=== PATIENT | female | born 1970 | race Caucasian/White ===

== ENCOUNTER 2021-12-08 09:26 | Outpatient (CLI) | payer BC | END 2021-12-08 09:27 | disposition home or self-care (01) | LOC: SCSRAD 09:26 | PROVIDERS: ATTEND Internal Medicine Rheumatology | DX: M25.551 Pain in right hip (principal); M25.552 Pain in left hip | CPT/HCPCS: 72170 ==

== ENCOUNTER 2022-03-08 19:00 | Outpatient (CLI) | payer BC | END 2022-03-08 19:01 | disposition home or self-care (01) | LOC: SLEEPLAB 19:00 | PROVIDERS: ATTEND Student in an Organized Health Care Education/Training Program | DX: G47.33 Obstructive sleep apnea (adult) (pediatric) (principal); G47.00 Insomnia, unspecified; R53.83 Other fatigue; R51.9 Headache, unspecified; E66.9 Obesity, unspecified; R06.83 Snoring; I10 Essential (primary) hypertension; G47.10 Hypersomnia, unspecified; G47.52 REM sleep behavior disorder; Z68.38 Body mass index [BMI] 38.0-38.9, adult | CPT/HCPCS: 95810 ==

== ENCOUNTER 2022-08-22 14:57 | Outpatient (CLI) | payer BC | END 2022-08-22 14:58 | disposition home or self-care (01) | LOC: SCSRAD 14:57 | PROVIDERS: ATTEND Student in an Organized Health Care Education/Training Program | DX: M79.671 Pain in right foot (principal) ==

== ENCOUNTER 2023-01-08 11:01 | Outpatient (CLI) | payer BC ==
[2023-01-08 12:23] LABS: #Basophils 0.1 10x3/uL (0.0-0.2); #Eosinphils 0.2 10x3/uL (0.0-0.5); #Monocytes 0.3 10x3/uL (0.0-1.1); #Neutrophils 2.5 10x3/uL (1.5-8.4); %Basophils 1.5 % (0.0-2.0); %Eosinophils 5.1 % (0.0-6.0); %Lymphocytes 25.7 % (18.0-47.0); %Monocytes 7.1 % (0.0-10.0); %Neutrophils 60.4 % (40.0-75.0); Hemoglobin 14.4 g/dL (12.0-15.5); Mean Corpuscular HGB CONC 33.6 g/dL (32.0-36.0); Mean Corpuscular Hemoglobin 31.2 pg (27.0-33.0); Mean Corpuscular Volume 92.6 fl (81.6-98.3); Mean Platelet Volume 10.2 fl (7.4-10.4); Platelet Count 266 10x3/uL (150-450); RBC Distribution Width 11.7 % (11.5-14.5); Red Blood Cell (RBC) Count 4.62 10x6/uL (3.90-5.03); White Blood Cell (WBC) Count 4.1 10x3/uL (3.5-10.5)
[2023-01-08 12:32] LABS: PTT 27.6 sec (22.0-33.0); Prothrombin Time 10.7 sec (9.5-12.1)
[2023-01-08 12:34] LABS: Anion Gap 13 mmol/L (10-20); BUN (Urea Nitrogen) 17 mg/dL (9.8-20.1); Calc. Creatinine Clearance 0 mL/min (70-130); Calcium 9.5 mg/dL (7.8-10.44); Carbon Dioxide 28 mmol/L (22-29); Chloride 105 mmol/L (98-107); Estimated GFR 71; Glucose 90 mg/dL (70-105); Potassium 4.2 mmol/L (3.5-5.1); Sodium 142 mmol/L (136-145)
== END 2023-01-08 11:02 | disposition home or self-care (01) ==
LOC: LABBT 11:01
PROVIDERS: ATTEND Orthopaedic Surgery
DX: Z01.818 Encounter for other preprocedural examination (principal); M17.12 Unilateral primary osteoarthritis, left knee
CPT/HCPCS: 80048; 85025; 85610; 85730; 87081; 93005; 93010

== ENCOUNTER 2023-01-15 05:32 | Observation (INO) | payer BC ==
[2023-01-08 11:43] VITALS: BMI 35.6
[2023-01-15] MEDS ORDERED: Vancomycin (BATCH) 1.5 GRAM/300 ML BAG ONE (05:47)
[2023-01-15] MEDS ORDERED: Tranexamic Acid 1,000 MG/10 ML VIAL ONE (05:47)
[2023-01-15] MEDS ORDERED: Sodium Chloride 0.9% 100 ML ONE ×2 (05:47→06:51)
[2023-01-15] MEDS ORDERED: ePHEDrine Sulfate 50 MG/10 ML VIAL ONE (06:23)
[2023-01-15] MEDS ORDERED: diphenhydrAMINE 50 MG/ML VIAL ONE (06:23)
[2023-01-15] MEDS ORDERED: Ondansetron PF 4 MG/2 ML Vial ONE (06:23)
[2023-01-15] MEDS ORDERED: Dexamethasone 20 MG/5 ML VIAL ONE (06:23)
[2023-01-15] MEDS ORDERED: PROPOFOL 200 MG/20 ML VIAL ONE (06:23)
[2023-01-15] MEDS ORDERED: Ketorolac Tromethamine 30 MG/ML VIAL ONE (06:23)
[2023-01-15] MEDS ORDERED: Lidocaine 1% PF 5 ML VIAL ONE (06:23)
[2023-01-15] MEDS ORDERED: fentaNYL 50 mcg/mL 1 mL Vial ONE ×2 (06:29→06:40)
[2023-01-15] MEDS ORDERED: Midazolam HCl 2 mg/2 ml Vial ONE (06:40)
[2023-01-15] MEDS ORDERED: Bupivacaine PF 0.5% 30 ML VIAL ONE (06:41)
[2023-01-15] MEDS ORDERED: CEFAZOLIN 2 GM VIAL ONE ×2 (06:51→20:12)
[2023-01-15] MEDS ORDERED: HYDROcodone/Acetaminophen 10/325 mg Tablet PO PRN (07:15)
[2023-01-15] MEDS ORDERED: Promethazine HCl 25 MG/ML VIAL IM PRN ×3 (07:15→08:21)
[2023-01-15] MEDS ORDERED: Ondansetron PF 4 MG/2 ML Vial IVP PRN ×2 (07:15→07:19)
[2023-01-15] MEDS ORDERED: fentaNYL 50 mcg/mL 1 mL Vial SLOW IVP PRN (07:15)
[2023-01-15] MEDS ORDERED: traMADol HCl 50 MG TAB PO PRN ×2 (07:15)
[2023-01-15] MEDS ORDERED: Zolpidem Tartrate 5 MG TAB PO PRN ×3 (07:15→07:28)
[2023-01-15] MEDS ORDERED: Ropivacaine 0.2% 550 ML 550 ML NERVE BLCK SCH (07:15)
[2023-01-15] MEDS ORDERED: Acetaminophen 325 MG TAB PO PRN (07:19)
[2023-01-15] MEDS ORDERED: diphenhydrAMINE 25 MG CAP PO PRN ×3 (07:19→07:26)
[2023-01-15] MEDS ORDERED: Triamterene/Hydrochlorothiazide 37.5 mg/25 mg Tablet PO PRN (07:21)
[2023-01-15] MEDS ORDERED: ALPRAZolam 0.5 MG TAB PO PRN (07:21)
[2023-01-15] MEDS ORDERED: Cyclobenzaprine 10 MG TAB PO PRN ×2 (07:21→07:25)
[2023-01-15] MEDS ORDERED: Non-Formulary Item 1 EACH (Zolpidem Tartrate [Ambien] 10 MG Tablet) PO PRN (07:21)
[2023-01-15] MEDS ORDERED: HYDROmorphone 2 MG/ML VIAL ONE (07:32)
[2023-01-15] MEDS ORDERED: Bupivacaine HCl 0.5%/Epinephrine 1:200,000/PF 30 ml Vial ONE (07:50)
[2023-01-15] MEDS ORDERED: HYDROmorphone 2 MG/ML VIAL SLOW IVP PRN (08:21)
[2023-01-15] MEDS ORDERED: Ondansetron HCl/PF 4 MG/2 ML Vial IVP PRN (08:21)
[2023-01-15] MEDS ORDERED: fentaNYL PF 100 MCG/2 ML SYRINGE ONE (08:56)
[2023-01-15] MEDS ORDERED: Docusate 100 MG CAP PO SCH (09:00)
[2023-01-15] MEDS ORDERED: Hydroxychloroquine Sulfate 200 MG TAB PO SCH (09:00)
[2023-01-15] MEDS ORDERED: Levothyroxine Sodium 88 MCG TAB PO SCH (09:00)
[2023-01-15] MEDS ORDERED: CO Q-10 CAPSULE 100 MG PO SCH (09:00)
[2023-01-15] MEDS ORDERED: Ramipril 5 MG CAP PO SCH (09:00)
[2023-01-15] MEDS ORDERED: HYDROmorphone 0.5 MG/0.5 ML SYRINGE ONE ×3 (09:10→09:34)
[2023-01-15] MEDS: Ferrous Gluconate 324 MG TAB PO SCH ×2 (10:55→20:15)
[2023-01-15] MEDS: Docusate 100 MG CAP PO SCH (10:55)
[2023-01-15] MEDS: Aspirin 81 mg Enteric Coated Tablet PO SCH ×2 (10:55→20:14)
[2023-01-15] MEDS: Sodium Chloride 0.9% 1,000 ML IV SCH ×2 (10:55→11:06)
[2023-01-15] MEDS: Senokot S 8.6-50 MG TAB PO SCH ×2 (10:56→20:14)
[2023-01-15] MEDS: Ramipril 5 MG CAP PO SCH (10:56)
[2023-01-15] MEDS: Levothyroxine Sodium 88 MCG TAB PO SCH (10:56)
[2023-01-15] MEDS: Hydroxychloroquine Sulfate 200 MG TAB PO SCH (10:56)
[2023-01-15] MEDS: CO Q-10 CAPSULE 100 MG PO SCH (10:56)
[2023-01-15] MEDS: Multivitamin W/ Minerals 1 TAB PO SCH (10:56)
[2023-01-15] MEDS: Ketorolac Tromethamine 30 MG/ML VIAL IVP SCH ×3 (11:05→23:32)
[2023-01-15] MEDS: CEFAZOLIN 2 GM in Sodium Chloride 0.9% 100 ML IVPB SCH ×2 (13:58→20:14)
[2023-01-15] MEDS: HYDROcodone/Acetaminophen 10/325 mg Tablet PO PRN ×2 (14:02→20:15)
[2023-01-15] MEDS ORDERED: HYDROcodone/Acetaminophen 10/325 mg Tablet ONE (20:11)
[2023-01-15] MEDS ORDERED: Senokot S 8.6-50 MG TAB ONE (20:12)
[2023-01-15] MEDS ORDERED: Ferrous Gluconate 324 MG TAB ONE (20:12)
[2023-01-15] MEDS ORDERED: Aspirin 81 mg Enteric Coated Tablet ONE (20:12)
[2023-01-15] MEDS ORDERED: Calcium Carbonate 500 MG ChewTAB PO PRN (21:44)
[2023-01-16] MEDS: Ketorolac Tromethamine 30 MG/ML VIAL IVP SCH ×2 (05:14→11:14)
[2023-01-16] MEDS: Sodium Chloride 0.9% 1,000 ML IV SCH (05:15)
[2023-01-16 06:18] LABS: Hemoglobin 11.5 g/dL (12.0-16.0); Mean Corpuscular HGB CONC 32.3 g/dL (32.0-36.0); Mean Corpuscular Hemoglobin 30.7 pg (27.0-31.0); Mean Corpuscular Volume 94.9 fl (78.0-98.0); Mean Platelet Volume 10.2 fL (7.4-10.4); Platelet Count 186 10x3/uL (130-400); RBC Distribution Width 11.5 % (11.5-14.5); Red Blood Cell (RBC) Count 3.75 mill/uL (4.20-5.40); White Blood Cell (WBC) Count 7.4 10x3/uL (4.8-10.8)
[2023-01-16] MEDS: Ferrous Gluconate 324 MG TAB PO SCH (08:19)
[2023-01-16] MEDS: Senokot S 8.6-50 MG TAB PO SCH (08:19)
[2023-01-16] MEDS: Docusate 100 MG CAP PO SCH (08:20)
[2023-01-16] MEDS: Hydroxychloroquine Sulfate 200 MG TAB PO SCH (08:20)
[2023-01-16] MEDS: Multivitamin W/ Minerals 1 TAB PO SCH (08:20)
[2023-01-16] MEDS: Levothyroxine Sodium 88 MCG TAB PO SCH (08:20)
[2023-01-16] MEDS: CO Q-10 CAPSULE 100 MG PO SCH (08:20)
[2023-01-16] MEDS: HYDROcodone/Acetaminophen 10/325 mg Tablet PO PRN ×2 (08:21→12:12)
[2023-01-16] MEDS: Aspirin 81 mg Enteric Coated Tablet PO SCH (08:21)
[2023-01-16 08:23] VITALS: BP 104/67
[2023-01-16] MEDS: Ramipril 5 MG CAP PO SCH (08:23)
[2023-01-16 09:05] VITALS: TEMP 98.4
== END 2023-01-16 12:28 | disposition home or self-care (01) ==
LOC: SDC 05:32 → SURG A 10:46
PROVIDERS: ADMIT Orthopaedic Surgery; ATTEND Orthopaedic Surgery
PROC: 0SRD0J9 Replacement of Left Knee Joint with Synthetic Substitute, Cemented, Open Approach (ICD-10-PCS; principal; 2023-01-15)
DX: M17.0 Bilateral primary osteoarthritis of knee (principal); I10 Essential (primary) hypertension; G47.30 Sleep apnea, unspecified; E03.9 Hypothyroidism, unspecified; Z79.1 Long term (current) use of non-steroidal anti-inflammatories (NSAID); Z79.890 Hormone replacement therapy; Z79.899 Other long term (current) drug therapy; Z88.0 Allergy status to penicillin
CPT/HCPCS: 36415; 85027; 96365; 96372; 96375; 96376; A4306; C1713; C1776; G0378; J1100; J1170; J1200; J1885; J2250; J2405; J2550; J2704; J2795; J3010; J3370; J3490; J7050; S0020

== ENCOUNTER 2023-08-12 08:44 | Outpatient (CLI) | payer BC | END 2023-08-12 08:45 | disposition home or self-care (01) | LOC: SCSRAD 08:44 | PROVIDERS: ATTEND Nurse Practitioner Family | DX: A09 Infectious gastroenteritis and colitis, unspecified (principal); R05.1 Acute cough | CPT/HCPCS: 74019 ==

== ENCOUNTER 2023-08-16 09:15 | Outpatient (CLI) | payer BC ==
[2023-08-16 11:47] LABS: #Eosinphils 0.2 10x3/uL (0.0-0.5); #Monocytes 0.3 10x3/uL (0.0-1.1); #Neutrophils 2.3 10x3/uL (1.5-8.4); %Eosinophils 6.1 % (0.0-6.0); %Lymphocytes 27.3 % (18.0-47.0); %Monocytes 8.1 % (0.0-10.0); %Neutrophils 57.2 % (40.0-75.0); Hemoglobin 13.8 g/dL (12.0-15.5); Mean Corpuscular HGB CONC 32.9 g/dL (32.0-36.0); Mean Corpuscular Hemoglobin 31.7 pg (27.0-33.0); Mean Corpuscular Volume 96.3 fl (81.6-98.3); Mean Platelet Volume 10.3 fl (7.4-10.4); Platelet Count 269 10x3/uL (150-450); RBC Distribution Width 12.2 % (11.5-14.5); Red Blood Cell (RBC) Count 4.36 10x6/uL (3.90-5.03)
[2023-08-16 12:08] LABS: Prothrombin Time 10.4 sec (9.5-12.1)
== END 2023-08-16 09:16 | disposition home or self-care (01) ==
LOC: LABBT 09:15
PROVIDERS: ATTEND Orthopaedic Surgery
DX: Z01.818 Encounter for other preprocedural examination (principal); M17.11 Unilateral primary osteoarthritis, right knee
CPT/HCPCS: 85025; 85610; 87081; 93005; 93010